=== PATIENT | female | born 1985 | race Two or more races ===

== ENCOUNTER 2021-03-24 08:09 | Inpatient (IN) | payer OTHER ==
[~2021-03-24] VITALS: Ht 165.1 cm; Wt 129.5 kg
[2021-03-24] MEDS ORDERED: TERBUTALINE 1 MG/ML, 1ML SQ PRN (09:00)
[2021-03-24] MEDS ORDERED: SODIUM CITRATE/CITRIC ACID 30 ML UDC PO PRN (09:00)
[2021-03-24] MEDS ORDERED: ONDANSETRON 2MG/ML, 2ML IVPush PRN ×2 (09:00→14:00)
[2021-03-24] MEDS ORDERED: FENTANYL PF 100 MCG/2ML IVPush PRN (09:00)
[2021-03-24] MEDS ORDERED: TERBUTALINE 1 MG/ML, 1ML IVPush PRN (09:00)
[2021-03-24] MEDS ORDERED: FENTANYL PF 100 MCG/2ML IV PRN (09:00)
[2021-03-24] MEDS ORDERED: OXYTOCIN 30U/ 0.9% NaCL 500ML 500 ML IV PRN (09:00)
[2021-03-24] MEDS ORDERED: OXYTOCIN 30U/ 0.9% NaCL 500ML 500 ML IV ONE (09:00)
[2021-03-24] MEDS ORDERED: CALCIUM CARBONATE 500 MG TAB.CHEW PO PRN ×2 (09:00→22:00)
[2021-03-24] MEDS ORDERED: LACTATED RINGERS 1,000 ML IV SCH ×2 (09:00→14:00)
[2021-03-24] MEDS ORDERED: D5%-LACTATED RINGERS 1,000 ML IV SCH (09:00)
[2021-03-24 09:23] LABS: BASOPHILS % (AUTO) 0 % (0-1); EOSINOPHILS % (AUTO) 1 % (1-7); LYMPHOCYTES % (AUTO) 17 % (22-44); MEAN CORPUSCULAR HEMOGLOBIN 27.6 pg (27.0-34.8); MEAN CORPUSCULAR HGB CONC 33.7 g/dL (32.4-35.8); MEAN PLATELET VOLUME 9.8 fL (7.4-10.4); MONOCYTES % (AUTO) 4 % (2-9); NEUTROPHILS % (AUTO) 77 % (42-75); PLATELET COUNT 254 x10^3/uL (130-400); RED BLOOD COUNT 4.24 x10^6/uL (3.82-5.3); RED CELL DISTRIBUTION WIDTH 16.4 % (9.6-15.2)
[2021-03-24] MEDS ORDERED: NEWBORN KIT ONE (09:25)
[2021-03-24] MEDS ORDERED: LIDOCAINE 1%, 20ML ONE (09:25)
[2021-03-24] MEDS ORDERED: MISOPROSTOL 200 MCG TABLET ONE (09:26)
[2021-03-24] MEDS ORDERED: FENTANYL/BUPIV./NS/PF 250 ML EPIDCONT SCH ×2 (09:30→14:00)
[2021-03-24 13:02] LABS: AMPHETAMINE SCREEN, URINE Negative (Negative); BARBITURATE SCREEN, URINE Negative (Negative); BENZODIAZEPINE SCREEN, URINE Negative (Negative); CANNABINOID SCREEN, URINE Negative (Negative); COCAINE SCREEN, URINE Negative (Negative); METHADONE SCREEN, URINE Negative (Negative); OPIATE SCREEN, URINE Negative (Negative)
[2021-03-24] MEDS ORDERED: BUPIVACAINE 0.25% ONE (13:26)
[2021-03-24] MEDS ORDERED: NALOXONE 0.4 MG/ML, 1ML IVPush PRN (14:00)
[2021-03-24] MEDS ORDERED: LACTATED RINGERS 1,000 ML IVBOLUS PRN (14:00)
[2021-03-24] MEDS ORDERED: DIPHENHYDRAMINE 50 MG/ML, 1ML IVPush PRN (14:00)
[2021-03-24] MEDS ORDERED: EPHEDRINE 50 MG/ML, 1ML IVPush PRN (14:00)
[2021-03-24] MEDS ORDERED: METOCLOPRAMIDE 5 MG/ML, 2ML ONE (19:44)
[2021-03-24] MEDS ORDERED: SODIUM CITRATE/CITRIC ACID 15 ML UDC ONE (19:44)
[2021-03-24] MEDS ORDERED: LIDOCAINE/MPF 2%-EPI 1:200K, 20 ML ONE (20:10)
[2021-03-24] MEDS ORDERED: morphine SULFATE/PF 0.5 MG/ML, 10ML ONE (20:27)
[2021-03-24] MEDS ORDERED: SODIUM CHLORIDE 0.9% PF 10ML ONE (20:28)
[2021-03-24] MEDS ORDERED: OXYTOCIN 10 UNITS/ML, 1ML ONE (20:28)
[2021-03-24] MEDS ORDERED: KETOROLAC 30 MG/1 ML ONE (20:28)
[2021-03-24] MEDS ORDERED: CEFAZOLIN 1,000 MG ONE ×2 (20:28→20:31)
[2021-03-24] MEDS ORDERED: ONDANSETRON 2MG/ML, 2ML ONE (20:28)
[2021-03-24] MEDS ORDERED: DEXAMETHASONE 4 MG/ML, 1ML ONE (20:28)
[2021-03-24] MEDS ORDERED: MEPERIDINE/PF 50 MG/ML ONE (21:40)
[2021-03-24] MEDS: LACTATED RINGERS 1,000 ML IV SCH ×2 (22:00)
[2021-03-24] MEDS ORDERED: MEPERIDINE/PF 50 MG/ML IVPush PRN (22:00)
[2021-03-24] MEDS ORDERED: CARBOPROST TROMETHAMINE 250 MCG/ML, 1ML IM PRN (22:00)
[2021-03-24] MEDS ORDERED: MISOPROSTOL 200 MCG TABLET PR PRN (22:00)
[2021-03-24] MEDS ORDERED: METOCLOPRAMIDE 5 MG/ML, 2ML IV PRN (22:00)
[2021-03-24] MEDS: KETOROLAC 30 MG/1 ML IV SCH (22:00)
[2021-03-24] MEDS ORDERED: METHYLERGONOVINE 0.2 MG/ML IM PRN (22:00)
[2021-03-24] MEDS ORDERED: ONDANSETRON 2MG/ML, 2ML IV PRN (22:00)
[2021-03-24] MEDS: OXYTOCIN 30U/ 0.9% NaCL 500ML 500 ML IV SCH (22:00)
[2021-03-24] MEDS ORDERED: ACETAMINOPHEN 325 MG TABLET PO PRN ×2 (22:00)
[2021-03-24 23:45] VITALS: BP 123/82
[2021-03-25] MEDS: KETOROLAC 30 MG/1 ML IV SCH ×4 (03:29→21:58)
[2021-03-25 04:00] VITALS: BP 113/75
[2021-03-25 05:35] LABS: BASOPHILS % (AUTO) 0 % (0-1); EOSINOPHILS % (AUTO) 0 % (1-7); LYMPHOCYTES % (AUTO) 9 % (22-44); MEAN CORPUSCULAR HEMOGLOBIN 27.7 pg (27.0-34.8); MEAN CORPUSCULAR HGB CONC 33.3 g/dL (32.4-35.8); MEAN PLATELET VOLUME 9.5 fL (7.4-10.4); MONOCYTES % (AUTO) 5 % (2-9); NEUTROPHILS % (AUTO) 86 % (42-75); PLATELET COUNT 215 x10^3/uL (130-400); RED BLOOD COUNT 3.53 x10^6/uL (3.82-5.3); RED CELL DISTRIBUTION WIDTH 16.7 % (9.6-15.2)
[2021-03-25] MEDS: LACTATED RINGERS 1,000 ML IV SCH ×5 (06:00→22:00)
[2021-03-25 07:50] VITALS: BP 105/70
[2021-03-25] MEDS: OXYTOCIN 30U/ 0.9% NaCL 500ML 500 ML IV SCH ×2 (08:00→18:00)
[2021-03-25] MEDS: PRENATAL VIT/IRON/FA 1 EACH TABLET PO SCH (09:00)
[2021-03-25] MEDS: SIMETHICONE 80 MG CHEW TAB PO PRN ×2 (09:22→15:59)
[2021-03-25] MEDS: DOCUSATE 100 MG CAPSULE PO PRN ×2 (09:22→21:32)
[2021-03-25 12:29] VITALS: BP 112/74
[2021-03-25] MEDS: OXYcodone/APAP 5/325MG TABLET PO PRN ×2 (14:31→21:32)
[2021-03-25 16:15] VITALS: BP 113/78
[2021-03-25 21:00] VITALS: BP 122/78
[2021-03-26] MEDS: OXYcodone/APAP 5/325MG TABLET PO PRN ×5 (01:41→23:08)
[2021-03-26] MEDS: KETOROLAC 30 MG/1 ML IV SCH ×2 (04:25→11:18)
[2021-03-26] MEDS: SIMETHICONE 80 MG CHEW TAB PO PRN ×2 (07:46→13:56)
[2021-03-26] MEDS: DOCUSATE 100 MG CAPSULE PO PRN ×2 (07:46→18:36)
[2021-03-26] MEDS: PRENATAL VIT/IRON/FA 1 EACH TABLET PO SCH (07:46)
[2021-03-26] MEDS ORDERED: MEASLES,MUMPS&RUBELLA VACC/PF 0.5 ML SQ-VACC ONE (12:00)
[2021-03-26] MEDS: IBUPROFEN 600 MG TABLET PO PRN ×2 (17:02→23:08)
[2021-03-26 19:45] VITALS: BP 137/87
[2021-03-27] MEDS: IBUPROFEN 600 MG TABLET PO PRN (05:17)
[2021-03-27] MEDS: OXYcodone/APAP 5/325MG TABLET PO PRN ×2 (05:18→10:01)
[2021-03-27] MEDS ORDERED: OXYC-302 PO (05:59)
[2021-03-27] MEDS ORDERED: IBUP-1222 PO (07:54)
[2021-03-27 08:10] VITALS: BP 137/84
[2021-03-27] MEDS: PRENATAL VIT/IRON/FA 1 EACH TABLET PO SCH (09:00)
[2021-03-27] MEDS: DOCUSATE 100 MG CAPSULE PO PRN (09:59)
== END 2021-03-27 10:50 | disposition home or self-care (01) | DRG 787 ==
LOC: LDOP 08:09 → LDIP 08:50 → 2NW 23:30
PROVIDERS: ADMIT Obstetrics & Gynecology; ATTEND Obstetrics & Gynecology
PROC: 10D00Z1 Extraction of Products of Conception, Low, Open Approach (ICD-10-PCS; principal; 2021-03-24)
DX: O62.1 Secondary uterine inertia (principal); O99.354 Diseases of the nervous system complicating childbirth; O99.52 Diseases of the respiratory system complicating childbirth; Z37.0 Single live birth; O99.02 Anemia complicating childbirth; D64.9 Anemia, unspecified; Z20.822 Contact with and (suspected) exposure to COVID-19; O99.344 Other mental disorders complicating childbirth; F32.9 Major depressive disorder, single episode, unspecified; G43.909 Migraine, unspecified, not intractable, without status migrainosus; O32.4XX0 Maternal care for high head at term, not applicable or unspecified; J45.909 Unspecified asthma, uncomplicated; Z3A.38 38 weeks gestation of pregnancy; Z79.899 Other long term (current) drug therapy; Z79.891 Long term (current) use of opiate analgesic
CPT/HCPCS: 36415; J7121; 80307; 84112; 85025; 86592; 86850; 86900; 87635; 90707; G0378; J0690; J1100; J1885; J2175; J2274; J2405; J2590; J3010; J7120